=== PATIENT | male | born 1990 | race Caucasian/White ===

== ENCOUNTER 2016-04-06 13:05 | Emergency (ER) | payer MEDICAID ==
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
[2016-04-06] MEDS ORDERED: ACETAMINOPHEN 325 MG TABLET PO ONE (13:17)
== END 2016-04-06 14:37 | disposition left against medical advice (07) ==
LOC: ER 13:05
DX: S49.91XA Unspecified injury of right shoulder and upper arm, initial encounter (principal); M25.511 Pain in right shoulder; W23.0XXA Caught, crushed, jammed, or pinched between moving objects, initial encounter; Y93.89 Activity, other specified; Y92.009 Unspecified place in unspecified non-institutional (private) residence as the place of occurrence of the external cause; Z88.6 Allergy status to analgesic agent; Z88.8 Allergy status to other drugs, medicaments and biological substances; Z88.5 Allergy status to narcotic agent; Z53.20 Procedure and treatment not carried out because of patient's decision for unspecified reasons
CPT/HCPCS: 99281; 73030; J3490

== ENCOUNTER 2017-02-15 14:20 | Emergency (ER) | payer OTHER ==
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
--- NOTE | 2017-02-15 15:38 | RADIOLOGY REPORT (SQ) ---
EXAM DESCRIPTION: SHOULDER RIGHT 2 OR MORE VIEWS COMPLETED DATE/TIME: 02/15/2017 3:26 pm REASON FOR STUDY: pain COMPARISON: None. NUMBER OF VIEWS: Three views. TECHNIQUE: Internal rotation, external rotation, and Y view images acquired of the right shoulder. LIMITATIONS: None. FINDINGS: MINERALIZATION: Normal. BONES: No acute fracture or dislocation. No worrisome bone lesions. JOINTS: The humeral head is low lying slightly medially displace concerning for anterior dislocation. VISUALIZED LUNGS AND RIBS: No pneumothorax. No rib fracture. SOFT TISSUES: No radiopaque foreign body. OTHER: No other significant finding. IMPRESSION: There appears to an anterior dislocation. TECHNICAL DOCUMENTATION: JOB ID: [id number] [employer]- All Rights Reserved
[2017-02-15] MEDS ORDERED: LIDOCAINE 2% INJ (20 MG/ML) 20 ML MDV INJ ONE (17:21)
[2017-02-15] MEDS ORDERED: KETAMINE HCL INJ 500 MG/10 ML VIAL IM ONE (17:34)
[2017-02-15] MEDS ORDERED: KETAMINE HCL INJ 500 MG/10 ML VIAL IV ONE ×2 (17:54→19:18)
[2017-02-15] MEDS ORDERED: DIAZEPAM INJ 10 MG/2 ML DISP.SYRIN IV ONE (18:28)
[2017-02-15] MEDS ORDERED: DIAZEPAM INJ 10 MG/2 ML DISP.SYRIN ONE (18:30)
[2017-02-15] MEDS ORDERED: KETOROLAC TROMETHAMINE INJ/PF 30 MG/1 ML SDV IV ONE (18:39)
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
[2017-02-15] MEDS ORDERED: HYDROCODONE/ACETAMINOPHEN 5-325 MG 6 TAB/DSPK PO PRN (19:00)
--- NOTE | 2017-02-15 19:07 | RADIOLOGY REPORT (SQ) ---
EXAM DESCRIPTION: SHOULDER RIGHT 1 VIEW COMPLETED DATE/TIME: 02/15/2017 6:59 pm REASON FOR STUDY: post reduction COMPARISON: None. NUMBER OF VIEWS: One view. TECHNIQUE: AP images acquired of the right shoulder. LIMITATIONS: None. FINDINGS: MINERALIZATION: Normal. BONES: No acute fracture or dislocation. No worrisome bone lesions. JOINTS: Apparent reduction of the previous dislocation. VISUALIZED LUNGS AND RIBS: No pneumothorax. No rib fracture. SOFT TISSUES: No radiopaque foreign body. OTHER: No other significant finding. IMPRESSION: Reduction of the previous dislocation. TECHNICAL DOCUMENTATION: JOB ID: [id number] [employer]- All Rights Reserved
[2017-02-15 19:18] VITALS: BP 110/77
== END 2017-02-15 20:50 | disposition home or self-care (01) ==
LOC: ER 14:20
DX: S43.004A Unspecified dislocation of right shoulder joint, initial encounter (principal); M25.511 Pain in right shoulder; V49.9XXA Car occupant (driver) (passenger) injured in unspecified traffic accident, initial encounter; Z91.19 Patient's noncompliance with other medical treatment and regimen; F17.200 Nicotine dependence, unspecified, uncomplicated; Z88.6 Allergy status to analgesic agent; Z88.8 Allergy status to other drugs, medicaments and biological substances; Z88.5 Allergy status to narcotic agent
CPT/HCPCS: 99283; 99153; 99152; 96374; 73020; 73030; 23650; L3650; J3490 ×2; J3360

== ENCOUNTER 2018-10-17 11:26 | Emergency (ER) | payer OTHER ==
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
[2018-10-17] MEDS ORDERED: FENTANYL CITRATE INJ/PF 100 MCG/2 ML AMPUL IV ONE (12:00)
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
[2018-10-17] MEDS ORDERED: HYDROMORPHONE HCL INJ/PF 2 MG/ML AMPULE IV ONE (12:44)
[2018-10-17] MEDS ORDERED: ETOMIDATE INJ/PF 20 MG/10 ML SDV IV ONE (12:44)
[2018-10-17] MEDS ORDERED: ONDANSETRON HCL INJ/PF 4 MG/2 ML SDV IV ONE (12:44)
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
[2018-10-17] MEDS ORDERED: FENTANYL CITRATE INJ/PF 100 MCG/2 ML AMPUL ONE (13:47)
--- NOTE | 2018-10-17 14:08 | RADIOLOGY REPORT (SQ) ---
EXAM DESCRIPTION: SHOULDER RIGHT 1 VIEW COMPLETED DATE/TIME: 10/17/2018 1:59 pm REASON FOR STUDY: reduction COMPARISON: Earlier exam NUMBER OF VIEWS: Three views. TECHNIQUE: Internal rotation, external rotation, and Y view images acquired of the right shoulder. LIMITATIONS: None. FINDINGS: MINERALIZATION: Normal. BONES: No acute fracture. No worrisome bone lesions. JOINTS: No dislocation. VISUALIZED LUNGS AND RIBS: No pneumothorax. No rib fracture. SOFT TISSUES: No radiopaque foreign body. OTHER: No other significant finding. IMPRESSION: Glenohumeral relationship appears restored. TECHNICAL DOCUMENTATION: JOB ID: [id number] [employer]- All Rights Reserved Reading location - IP/workstation name: [email or web address]
[2018-10-17 14:29] VITALS: BP 126/71
[2018-10-17] MEDS ORDERED: OXYCODONE HCL IR 5 MG TABLET PO ONE (15:01)
== END 2018-10-17 15:08 | disposition home or self-care (01) ==
LOC: ER 11:26
DX: M24.411 Recurrent dislocation, right shoulder (principal); V49.40XA Driver injured in collision with unspecified motor vehicles in traffic accident, initial encounter; F17.210 Nicotine dependence, cigarettes, uncomplicated; Z88.8 Allergy status to other drugs, medicaments and biological substances; Z88.5 Allergy status to narcotic agent
CPT/HCPCS: 73020; 73030; 23655; L3650; J3010; J1170; J2405; J3490; 96374; 96375; 99283; 99152

== ENCOUNTER 2018-10-30 18:16 | Emergency (ER) | payer OTHER ==
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
--- NOTE | 2018-10-30 18:48 | RADIOLOGY REPORT (SQ) ---
EXAM DESCRIPTION: SHOULDER RIGHT 2 OR MORE VIEWS COMPLETED DATE/TIME: 10/30/2018 6:36 pm REASON FOR STUDY: possible dislocation of right shoulder COMPARISON: 10/17/2018 NUMBER OF VIEWS: Two views. TECHNIQUE: Frontal and Y view images acquired of the right shoulder. LIMITATIONS: None. FINDINGS: MINERALIZATION: Normal. BONES: No acute fracture. No worrisome bone lesions. JOINTS: Anterior dislocation of the right glenohumeral joint. VISUALIZED LUNGS AND RIBS: No pneumothorax. No rib fracture. SOFT TISSUES: No radiopaque foreign body. OTHER: No other significant finding. IMPRESSION: Anterior dislocation of the right glenohumeral joint. TECHNICAL DOCUMENTATION: JOB ID: [id number] [employer]- All Rights Reserved Reading location - IP/workstation name: [email or web address]
[2018-10-30] MEDS ORDERED: ONDANSETRON HCL INJ/PF 4 MG/2 ML SDV IV ONE (18:50)
[2018-10-30] MEDS ORDERED: NORMAL SALINE 1000 ML 1,000 ML IV ONE (18:50)
[2018-10-30] MEDS ORDERED: MORPHINE SULFATE 10 MG/ML INJ IV ONE (18:50)
[2018-10-30] MEDS ORDERED: ETOMIDATE INJ/PF 20 MG/10 ML SDV IV ONE (18:52)
--- NOTE | 2018-10-30 19:21 | ER Document Report ---
Entered by CELESTINA HARRELL SCRIBE 10/30/18 4544 Acting as scribe for:JENI OLIVA MD ED Extremity Problem, Upper - General Chief Complaint: Shoulder Injury Stated Complaint: SHOULDER PAIN Time Seen by Provider: 10/30/18 18:25 Mode of Arrival: Ambulatory Information source: Patient Notes: Patient is a 28-year-old male with frequent right shoulder dislocations that presents to the emergency department today with complaints of a right shoulder dislocation which occurred about 30 minutes prior to arrival today. Patient states he was playing with his daughter when the dislocation occurred. Patient last had a right shoulder dislocation on 10/17/2018. Patient states that he had not had a dislocation for x2-3 years prior to the dislocation that occurred on 10/17/2018. Patient states he has followed up with physical therapy where he was told that he needs to have the shoulder operated on but he states he is "scared of surgery". Patient requests to not be given propofol as he has had a bad reaction to this in the past. TRAVEL OUTSIDE OF THE [place] IN LAST 30 DAYS: No - Related Data Allergies/Adverse Reactions: aspirin [Aspirin] Allergy (Verified 10/30/18 18:17) cyclobenzaprine HCl [From Flexeril] Allergy (Verified 10/30/18 18:17) naproxen [Naproxen] Allergy (Verified 10/30/18 18:17) tramadol [Tramadol] Allergy (Verified 10/30/18 18:17) Past Medical History - General Information source: Patient - Social History Smoking Status: Current Every Day Smoker Cigarette use (# per day): Yes Frequency of alcohol use: None Drug Abuse: None Lives with: Family Family History: Reviewed & Not Pertinent Patient has suicidal ideation: No Patient has homicidal ideation: No Musculoskeletal Medical History: Reports Hx Musculoskeletal Trauma - Frequent right shoulder anterior dislocation Past Surgical History: Reports: Hx Orthopedic Surgery - Immunizations Immunizations up to date: Yes Hx Diphtheria, Pertussis, Tetanus Vaccination: Yes - Unsure of date Review of Systems - Review of Systems Constitutional: No symptoms reported EENT: No symptoms reported Cardiovascular: No symptoms reported Respiratory: No symptoms reported Gastrointestinal: No symptoms reported Genitourinary: No symptoms reported Male Genitourinary: No symptoms reported Musculoskeletal: See HPI, Other - right shoulder pain/dislocation Skin: No symptoms reported Hematologic/Lymphatic: No symptoms reported Neurological/Psychological: No symptoms reported -: Yes All other systems reviewed and negative Physical Exam - Vital signs Vitals: Temp Pulse Resp BP Pulse Ox 98.2 F 119 H 19 151/111 H 96 10/30/18 18:22 10/30/18 18:22 10/30/18 18:22 10/30/18 18:22 10/30/18 18:22 - Notes Notes: Physical Exam: General: Alert, appears uncomfortable, hyperventilating. HEENT: Normocephalic. Atraumatic. PERRL. Extraocular movements intact. Oropharynx clear. Neck: Supple. Non-tender. Respiratory: No respiratory distress. Clear and equal breath sounds bilaterally. Hyperventilating. Cardiovascular: Regular rate and rhythm. Abdominal: Normal Inspection. Non-tender. No distension. Normal Bowel Sounds. Back: Grossly normal Upper extremities: Right shoulder deformity consistent with anterior dislocation. 2+ pulses distally. Normal distal sensation. Lower extremities: Normal inspection. No edema. Normal ROM. Neurological: Normal cognition. AAOx4. Normal speech. Psychological: Anxious Skin: Warm. Dry. Normal color. Course - Vital Signs Vital signs: Temp Pulse Resp BP Pulse Ox 98.2 F 119 H 19 151/111 H 96 10/30/18 18:22 10/30/18 18:22 10/30/18 18:22 10/30/18 18:22 10/30/18 18:22 - Diagnostic Test Radiology reviewed: Image reviewed, Reports reviewed - Anterior dislocation right shoulder. Procedures - Conscious Sedation Conscious sedation Consent obtained: Yes Prior complications: Procedural sedation Normal healthy pt.: P1. - ASA Classification Airway Evaluation: Normal anatomy Mallampati Classification: Class 1 Used during procedure: Suction available, IV access obtained, Pulse ox on pt., monitoring manager on pt. Medications administered: Fentanyl, Etomidate Reversal agents: None I personally performed/intraservice time: Procedure, 30 min or less Complications: No - Joint Reduction/Fracture Care Right Shoulder Time completed: 20:15 Consent obtained: Yes Conscious sedation: Yes Pre-procedure NV exam: Yes Post-procedure NV exam: Yes Post-reduction x-ray: Joint reduced Reduction attempts: 1 Complications: No Discharge - Discharge Clinical Impression: Recurrent dislocation, right shoulder Anterior dislocation of right shoulder Qualifiers: Encounter type: initial encounter Qualified Code(s): S43.014A - Anterior dislocation of right humerus, initial encounter Condition: Stable Disposition: HOME, SELF-CARE Additional Instructions: Shoulder Dislocation You've had a shoulder dislocation. Even after the shoulder is put back in place, careful care is needed to prevent further problems. As the shoulder dislocated, injury to the joint itself occurred. This must be allowed to heal. The usual treatment is a shoulder immobilizing sling. If this is your first dislocation, it must be left in place until the doctor allows you to remove it. This is important. Ice pack the shoulder frequently. One of the most important aspects of care for a shoulder dislocation is mobility exercises and strengthening exercises. You'll start these when it's safe to start moving the shoulder joint. Be sure to keep your follow-up appointments. If you develop numbness in the arm or hand, weakness of the hand muscles, arm swelling, or arm discoloration, call the doctor or return immediately. Use the shoulder immobilizer for the next several days. Use ice packs to the shoulder for the next 2 days to help reduce pain and swelling. Follow-up with the orthopedic surgeons to discuss definitive treatment for your chronically dislocating shoulder. Prescriptions: Oxycodone HCl/Acetaminophen [Percocet 5-325 mg Tablet] 1 tab PO ASDIR PRN #15 tablet PRN Reason: Referrals: [facility] ([facility] [Provider Group] - Follow up in 1 week Scribe Attestation: 10/30/18 19:21 I personally performed the services described in the documentation, reviewed and edited the documentation which was dictated to the scribe in my presence, and it accurately records my words and actions. I personally performed the services described in the documentation, reviewed and edited the documentation which was dictated to the scribe in my presence, and it accurately records my words and actions.
[2018-10-30] MEDS ORDERED: FENTANYL CITRATE INJ/PF 100 MCG/2 ML AMPUL IV ONE (19:43)
--- NOTE | 2018-10-30 21:11 | RADIOLOGY REPORT (SQ) ---
EXAM DESCRIPTION: AP view right shoulder at 2023 [facility]: XR SHOULDER 1 VIEW Views: 3 CLINICAL HISTORY: 28 years Male, post reduction COMPARISON: 10/30/2018 at 1850 FINDINGS: Glenohumeral joint is now in grossly anatomic alignment. No a.c. subluxation. IMPRESSION: 1. reduction of humeral head dislocation
[2018-10-30] MEDS ORDERED: HYDROCODONE/ACETAMINOPHEN 5-325 MG (6 TAB/ER DISP) PO PRN (21:41)
[2018-10-30 22:03] VITALS: BP 122/79
== END 2018-10-30 22:36 | disposition home or self-care (01) ==
LOC: ER 18:16
DX: M24.411 Recurrent dislocation, right shoulder (principal); F17.210 Nicotine dependence, cigarettes, uncomplicated; Z88.8 Allergy status to other drugs, medicaments and biological substances; Z88.5 Allergy status to narcotic agent
CPT/HCPCS: 73020; 73030; 23650; L3650; J3010; J2270; J2405; J7030; J3490